=== PATIENT | female | born 1995 | race Caucasian/White ===

== ENCOUNTER 2021-09-10 05:48 | Emergency (ER) | payer BC, SELFPAY ==
[2021-09-10 05:50] VITALS: BP 135/90; PULSE 82; RESP 16; TEMP 36.6; O2SAT 100
--- NOTE | 2021-09-10 06:26 | ED.GENADULT ---
HPI - General Adult General Chief complaint: Wound/Laceration Stated complaint: rt chin lac History of Present Illness HPI narrative: Patient is a 26-year-old female who presents the emergency department with chief complaint of chin laceration. Patient reports that she slipped and fell landed on a hardwood floor reports no loss of consciousness reports she has a laceration on her chin. The patient reports about centimeters in length. Patient reports that she has a little bit of pain in her left jaw worse with movement but states that she has no malocclusion reports she is able to move her jaw without difficulty. The patient states she is unsure of her last tetanus shot. Patient denies any other injuries denies neck pain denies loss of consciousness Related Data Home Medications Medication Instructions Recorded Confirmed norgestimate 0.25 mg-ethinyl tablet 09/10/21 estradiol 35 mcg tablet (Estarylla) Allergies Allergy/AdvReac Type Severity Reaction Status Date / Time No Known Allergies Allergy Unknown Verified 09/10/21 05:51 Review of Systems Review of Systems: A 10 system review of systems was completed on the patient and is negative except for what is stated in the HPI. Nursing and ancillary documentation was reviewed. Exam Narrative: GENERAL: Well-appearing, well-nourished, and in no acute distress. HEAD: Normocephalic, 3 cm laceration to the chin. EYES: PERRLA and EOMI. ENT: Nares clear, no rhinorrhea or epistaxis. Mucous membranes moist. NECK: Supple. CHEST: Clear to auscultation. No respiratory distress. HEART: Regular rate and rhythm. No murmur heard. Normal peripheral pulses. ABDOMEN: Soft, nontender, nondistended, normal active bowel sounds. EXTREMITIES: Normal range of motion. No edema. SKIN: Warm, dry, no rash. NEURO: No focal deficits. Alert and oriented x3. PSYCH: Normal mood and affect. Course Vital Signs Vital signs: Vital Signs Temperature 36.6 C 09/10/21 05:50 Pulse Rate 82 09/10/21 05:50 Respiratory Rate 16 09/10/21 05:50 Blood Pressure 135/90 09/10/21 05:50 Pulse Oximetry 100 09/10/21 05:50 Oxygen Delivery Room Air 09/10/21 05:50 Temperature 36.6 C 09/10/21 05:50 Pulse Rate 82 09/10/21 05:50 Respiratory Rate 16 09/10/21 05:50 Blood Pressure 135/90 09/10/21 05:50 Pulse Oximetry 100 09/10/21 05:50 Oxygen Delivery Room Air 09/10/21 05:50 Procedures Laceration Laceration 1: Date: 09/10/21 Time: 06:28 Site: face (chin) Size (cm): 3 Description: linear Depth: involves muscle layer Local Anesthetic: lidocaine 1% and with epi Amount of anesthesia used (mL): 5 ====== Skin Level ====== Skin layer closed with: prolene Size (cm): 6-0 Number of sutures: 7 Technique: simple, interrupted ====== Subcutaneous Layer ====== Subcutaneous layer closed with: vicryl Size: 4-0 Number of sutures: 1 ====== Muscle Layer ====== ====== Tendon Layer ====== Medical Decision Making Vital Signs Vital Signs: Vital Signs Temperature 36.6 C 09/10/21 05:50 Pulse Rate 82 09/10/21 05:50 Respiratory Rate 09/10/21 05:50 Blood Pressure 135/90 09/10/21 05:50 Pulse Oximetry 100 09/10/21 05:50 Oxygen Delivery Room Air 09/10/21 05:50 Temperature 36.6 C 09/10/21 05:50 Pulse Rate 82 09/10/21 05:50 Respiratory Rate 09/10/21 05:50 Blood Pressure 135/90 09/10/21 05:50 Pulse Oximetry 100 09/10/21 05:50 Oxygen Delivery Room Air 09/10/21 05:50 Discharge Plan Discharge Clinical Impression: Laceration Patient Disposition: Home, Self-Care Condition: Stable Instructions: Antibiotic Form, Care For Your Stitches (ED), Laceration (ED) Additional Instructions: Please have the sutures removed in 5 to 7 days you have a total of 7 sutures on the exterior Prescriptions: No Action no
[2021-09-10] MEDS: TETANUS,DIPHTHERIA,AC PERTUSSIS ADULT (0.5 ML) BOOSTRIX IM (06:28)
[2021-09-10] MEDS: LIDO 1%/EPINEPHRINE 1:100,000 50 ML VIAL 10 ML INFILTRATE (06:33)
== END 2021-09-10 07:02 | disposition home or self-care (01) ==
PROVIDERS: Emergency Provider Emergency Medicine
DX: S01.81XA Laceration without foreign body of other part of head, initial encounter (principal); Z23 Encounter for immunization; W01.0XXA Fall on same level from slipping, tripping and stumbling without subsequent striking against object, initial encounter
CPT/HCPCS: 12013; 12052; 90471; 90715; 99282